=== PATIENT | male | born 1965 | race Caucasian/White ===

== ENCOUNTER 2023-10-09 08:05 | Outpatient (CLI) | payer BC | END 2023-10-09 08:06 | disposition home or self-care (01) | LOC: CSHCT 08:05 | PROVIDERS: ATTEND Family Medicine | DX: Z12.2 Encounter for screening for malignant neoplasm of respiratory organs (principal); F17.210 Nicotine dependence, cigarettes, uncomplicated | CPT/HCPCS: 71271 ==

== ENCOUNTER 2024-10-08 08:12 | Outpatient (CLI) | payer BC | END 2024-10-08 08:13 | disposition home or self-care (01) | LOC: CSHCT 08:12 | PROVIDERS: ATTEND Family Medicine | DX: Z12.2 Encounter for screening for malignant neoplasm of respiratory organs (principal); Z87.891 Personal history of nicotine dependence | CPT/HCPCS: 71271 ==